=== PATIENT | female | born 1955 | race African-American/Black ===

== ENCOUNTER 2021-09-02 10:22 | Outpatient (CLI) | payer MEDICARE, OTHER | END 2021-09-02 10:23 | disposition home or self-care (01) | LOC: CSHRAD 10:22 | PROVIDERS: ATTEND Family Medicine | DX: M25.559 Pain in unspecified hip (principal); M16.12 Unilateral primary osteoarthritis, left hip; E13.9 Other specified diabetes mellitus without complications; R35.0 Frequency of micturition; Z79.899 Other long term (current) drug therapy | CPT/HCPCS: 80053; 80061; 81001; 82043; 83036; 84443; 85025 ==